=== PATIENT | male | born 1950 | race Caucasian/White ===

== ENCOUNTER 2019-12-14 20:52 | Emergency (ER) | payer OTHER ==
[2019-12-14] MEDS ORDERED: Fleet Enema 133 ML BOT ONE (21:32)
== END 2019-12-14 22:33 | disposition home or self-care (01) ==
LOC: NAV ERS 20:52
DX: K56.41 Fecal impaction (principal); I10 Essential (primary) hypertension; E78.5 Hyperlipidemia, unspecified; E78.00 Pure hypercholesterolemia, unspecified; F31.9 Bipolar disorder, unspecified; F41.9 Anxiety disorder, unspecified; F43.10 Post-traumatic stress disorder, unspecified; Z79.899 Other long term (current) drug therapy
CPT/HCPCS: 99283

== ENCOUNTER 2022-03-12 09:12 | Emergency (ER) | payer OTHER ==
[2022-03-12] MEDS ORDERED: Meclizine HCl 25 MG TAB ONE (09:37)
[2022-03-12] MEDS ORDERED: Ondansetron PF 4 MG/2 ML Vial ONE (09:37)
[2022-03-12] MEDS ORDERED: Sodium Chloride 0.9% 1,000 ML ONE (09:37)
[2022-03-12 09:43] LABS: #Basophils 0.1 thou/uL (0.0-0.2); #Eosinphils 0.1 thou/uL (0.0-0.7); #Lymphocytes 1.6 thou/uL (1.20-3.40); #Monocytes 0.5 thou/uL (0.11-0.59); %Eosinophils 1.4 % (0.0-10.0); %Lymphocytes 21.3 % (21.0-51.0); %Monocytes 7.3 % (0.0-10.0); %Neutrophils 68.9 % (42.0-75.0); Hemoglobin 15.1 g/dL (14.0-18.0); Mean Corpuscular Hemoglobin 30.7 pg (27.0-31.0); Platelet Count 201 thou/uL (130-400); RBC Distribution Width 13.2 % (11.5-14.5); Red Blood Cell (RBC) Count 4.91 mill/uL (4.70-6.10); White Blood Cell (WBC) Count 7.3 thou/uL (4.8-10.8)
[2022-03-12 09:57] LABS: ALT (SGPT) 16 U/L (8-55); AST (SGOT) 12 U/L (5-34); Albumin 3.7 g/dL (3.4-4.8); Alkaline Phosphatase 46 U/L (40-110); Anion Gap 16 mmol/L (10-20); BUN (Urea Nitrogen) 16 mg/dL (8.4-25.7); Bilirubin, Total 0.3 mg/dL (0.2-1.2); Calc. Creatinine Clearance 0 mL/min (70-130); Carbon Dioxide 23 mmol/L (23-31); Chloride 104 mmol/L (98-107); Estimated GFR 92; Globulin 2.2 g/dL (2.4-3.5); Glucose 110 mg/dL (83-110); Protein, Total 5.9 g/dL (5.8-8.1); Sodium 139 mmol/L (136-145)
[2022-03-12 12:30] LABS: Troponin I Less than 0.010 ng/mL (< 0.028)
== END 2022-03-12 12:53 | disposition home or self-care (01) ==
LOC: NAV ERS 09:12
DX: I45.10 Unspecified right bundle-branch block (principal); R11.2 Nausea with vomiting, unspecified; E78.00 Pure hypercholesterolemia, unspecified; I10 Essential (primary) hypertension; Z79.899 Other long term (current) drug therapy
CPT/HCPCS: 70450; 71045; 80053; 83735; 84484; 85025; 93005; 94760; 96361; 96374; J2405; J7050

== ENCOUNTER 2022-07-29 10:00 | Emergency (ER) | payer OTHER ==
[2022-07-29 11:09] LABS: #Basophils 0.1 thou/uL (0.0-0.2); #Eosinphils 0.1 thou/uL (0.0-0.7); #Lymphocytes 1.8 thou/uL (1.20-3.40); #Monocytes 0.5 thou/uL (0.11-0.59); #Neutrophils 3.3 thou/uL (1.40-6.50); %Eosinophils 1.1 % (0.0-10.0); %Lymphocytes 31.2 % (21.0-51.0); %Monocytes 8.9 % (0.0-10.0); %Neutrophils 57.8 % (42.0-75.0); Hemoglobin 15.3 g/dL (14.0-18.0); Mean Corpuscular HGB CONC 33.1 g/dL (32.0-36.0); Mean Corpuscular Volume 96.6 fl (78.0-98.0); Mean Platelet Volume 6.8 fL (7.4-10.4); Platelet Count 216 10x3/uL (130-400); RBC Distribution Width 12.5 % (11.5-14.5); Red Blood Cell (RBC) Count 4.79 mill/uL (4.70-6.10); White Blood Cell (WBC) Count 5.7 10x3/uL (4.8-10.8)
== END 2022-07-29 11:45 | disposition home or self-care (01) ==
LOC: NAV ERS 10:00
DX: K64.4 Residual hemorrhoidal skin tags (principal); E78.00 Pure hypercholesterolemia, unspecified; I10 Essential (primary) hypertension
CPT/HCPCS: 85025; 99283

== ENCOUNTER 2023-03-03 08:09 | Emergency (ER) | payer OTHER ==
[2023-03-03] MEDS ORDERED: Lidocaine 1% (PF) 30 ML VIAL ONE (08:47)
[2023-03-03] MEDS ORDERED: Amoxicillin/Potassium Clav 500 MG TAB ONE (08:48)
[2023-03-03] MEDS ORDERED: Bacitracin 1 PK ONE (09:39)
== END 2023-03-03 09:50 | disposition home or self-care (01) ==
LOC: NAV ERS 08:09
DX: S61.217A Laceration without foreign body of left little finger without damage to nail, initial encounter (principal); I10 Essential (primary) hypertension; W54.0XXA Bitten by dog, initial encounter
CPT/HCPCS: 12002; J2001

== ENCOUNTER 2023-03-18 11:51 | Emergency (ER) | payer OTHER | END 2023-03-18 12:30 | disposition home or self-care (01) | LOC: NAV ERS 11:51 | DX: S61.216D Laceration without foreign body of right little finger without damage to nail, subsequent encounter (principal); I10 Essential (primary) hypertension; E78.00 Pure hypercholesterolemia, unspecified; W54.0XXD Bitten by dog, subsequent encounter; Z79.899 Other long term (current) drug therapy ==

== ENCOUNTER 2023-06-19 10:25 | Emergency (ER) | payer OTHER, MEDICARE ==
[2023-06-19] MEDS ORDERED: Fleet Saline Enema 133 ML BOT PR SCH (12:15)
== END 2023-06-19 13:18 | disposition home or self-care (01) ==
LOC: NAV ERS 10:25
DX: K56.41 Fecal impaction (principal); E78.00 Pure hypercholesterolemia, unspecified; I10 Essential (primary) hypertension
CPT/HCPCS: 99283